=== PATIENT | female | born 1940 | race Caucasian/White ===

== ENCOUNTER 2020-05-25 13:22 | Observation (INO) ==
[~2020-05-25 13:22] MED LIST: Total Joint Mixture (50 ml) INTRAART ONE
[2020-05-25] MEDS ORDERED: Clindamycin 900 MG/50 ML 900 MG/50 ML IV.SOLN IVPB ONE (13:50)
[2020-05-25] MEDS ORDERED: Ringers Solution, Lactated 1,000 ML IVC SCH (14:00)
[2020-05-25] MEDS ORDERED: Acetaminophen IV 1,000 MG/100 ML BAG IVPB ONE (16:07)
[2020-05-25] MEDS ORDERED: Famotidine 20 MG/2 ML VIAL IVP ONE (16:07)
[2020-05-25] MEDS ORDERED: Pregabalin 75 MG CAPSULE PO ONE (16:10)
[2020-05-25] MEDS ORDERED: *HR* OxyCODONE Immed Rel 5 MG TABLET PO PRN (16:55)
[2020-05-25] MEDS ORDERED: Ondansetron 4 MG/2 ML VIAL IVP ONE (16:55)
[2020-05-25] MEDS ORDERED: Ethanol\\Acetic Acid\\Na Ace\\Ben 1,000 ML IRRIG.SOLN IR ONE (17:10)
[2020-05-25] MEDS ORDERED: Vancomycin 1,000 MG VIAL ONE (17:10)
[2020-05-25] MEDS ORDERED: *HR* Midazolam HCl 2 MG/2 ML VIAL ONE (18:00)
[2020-05-25] MEDS ORDERED: Ropivacaine/PF 0.5% 30 ML VIAL ONE (18:00)
[2020-05-25] MEDS ORDERED: Lidocaine -MPF 2% 2 ML VIAL ONE (18:23)
[2020-05-25] MEDS ORDERED: *HR* Propofol 200 MG/20 ML VIAL IVP ONE (18:23)
[2020-05-25 20:18] LABS: Hematocrit 29.5 % (35.3-44.9)
[2020-05-25] MEDS ORDERED: MOM Conc 10 ML UD.LIQ PO PRN (20:58)
[2020-05-25] MEDS ORDERED: Nitroglycerin 0.4 MG TAB.SUBL SL PRN (20:58)
[2020-05-25] MEDS ORDERED: D5% in Water 1,000 ML IVC PRN (20:58)
[2020-05-25] MEDS ORDERED: *HR* Promethazine 25 MG/ML VIAL IVP PRN (20:58)
[2020-05-25] MEDS ORDERED: Naloxone 0.4 MG/ML INJ IVP PRN (20:58)
[2020-05-25] MEDS ORDERED: Sennosides 8.6 MG TABLET PO PRN (20:58)
[2020-05-25] MEDS ORDERED: *HR* Dextrose 50 % in Water (Vial) 50 ML VIAL IVP PRN (20:58)
[2020-05-25] MEDS ORDERED: HYDROcodone BIT/Homatropine 5 MG TABLET PO PRN (20:58)
[2020-05-25] MEDS ORDERED: Ondansetron 4 MG/2 ML VIAL IVP PRN (20:58)
[2020-05-25] MEDS ORDERED: Dextrose Gel 15 GM/37.5 ML TUBE PO PRN ×2 (20:58)
[2020-05-25] MEDS: Ascorbic Acid 500 MG TABLET PO SCH (21:38)
[2020-05-25] MEDS: Insulin LISPRO 300 UNITS/3 ML VIAL SQ SCH (21:39)
[2020-05-25] MEDS: carvediloL 25 MG TABLET PO SCH (21:39)
[2020-05-26] MEDS: Clindamycin 900 MG/50 ML 900 MG/50 ML IV.SOLN IVPB SCH ×2 (00:22→07:46)
[2020-05-26] MEDS: *HR* OxyCODONE Immed Rel 5 MG TABLET PO PRN ×3 (01:32→21:08)
[2020-05-26] MEDS: Ringers Solution, Lactated 1,000 ML IVC SCH ×2 (02:21→12:58)
[2020-05-26] MEDS: *HR* Metformin 500 MG TABLET PO SCH ×2 (07:46→18:34)
[2020-05-26] MEDS: Cyanocobalamin (B-12) 1,000 MCG TABLET PO SCH (07:47)
[2020-05-26] MEDS: hydroCHLOROthiazide 25 MG TABLET PO SCH (07:47)
[2020-05-26] MEDS: Multivit/Ca/Min/Fe/FA 1 TAB TABLET PO SCH (07:47)
[2020-05-26] MEDS: Ascorbic Acid 500 MG TABLET PO SCH ×2 (07:47→18:34)
[2020-05-26] MEDS: *HR* Glimepiride 2 MG TABLET PO SCH (07:47)
[2020-05-26] MEDS: carvediloL 25 MG TABLET PO SCH ×2 (07:47→18:33)
[2020-05-26] MEDS: Insulin LISPRO 300 UNITS/3 ML VIAL SQ SCH ×4 (08:06→21:04)
[2020-05-26 12:06] LABS: Basophils % 0.2 %; Eosinophils % 0.1 %; Hematocrit 28.3 % (35.3-44.9); Hemoglobin 9.6 g/dL (11.5-15.4); Immature Granulocytes % 0.7 % (0-4); Lymphocytes # 1.1 K/mcL (0.6-4.6); Lymphocytes % 11.8 %; Mean Corpuscular HGB Conc 33.9 g/dL (31.6-35.5); Mean Corpuscular Hemoglobin 29.8 pg (28.0-33.3); Mean Corpuscular Volume 87.9 fL (83.0-100.0); Mean Platelet Volume 11.2 fL (9.4-12.4); Monocytes # 0.9 K/mcL (0.0-1.3); Neutrophils # 7.1 K/mcL (1.6-8.9); Platelet Count 153 K/mcL (140-400); Red Blood Count 3.22 M/mcL (3.82-4.97); Red Cell Distribution Width 12.1 % (11.5-14.5); Segmented Neutrophils % 77.2 %; White Blood Count 9.1 K/mcL (4.3-11.1)
[2020-05-26 12:25] LABS: BUN/Creatinine Ratio 23 (6-26); Blood Urea Nitrogen 24 mg/dL (8-23); Calcium 8.8 mg/dL (8.6-10.3); Carbon Dioxide 19 mEq/L (23-29); Chloride 103 mEq/L (98-107); Glucose 250 mg/dL (70-105); Osmolality,Calculated 286 (280-300); Potassium 4.3 mEq/L (3.5-5.1); Sodium 132 mEq/L (136-145); eGFR For African Americans > 60 (> 60); eGFR For Non-African Americans 51 (> 60)
[2020-05-26] MEDS: Aspirin Enteric Coated 81 MG Tablet PO SCH (18:34)
[2020-05-27] MEDS: *HR* OxyCODONE Immed Rel 5 MG TABLET PO PRN (04:31)
[2020-05-27] MEDS: Cyanocobalamin (B-12) 1,000 MCG TABLET PO SCH (07:38)
[2020-05-27] MEDS: Multivit/Ca/Min/Fe/FA 1 TAB TABLET PO SCH (07:38)
[2020-05-27] MEDS: carvediloL 25 MG TABLET PO SCH (07:38)
[2020-05-27] MEDS: Ringers Solution, Lactated 1,000 ML IVC SCH ×2 (07:39→12:33)
[2020-05-27] MEDS: *HR* Metformin 500 MG TABLET PO SCH (07:39)
[2020-05-27] MEDS: Ascorbic Acid 500 MG TABLET PO SCH (07:39)
[2020-05-27] MEDS: Aspirin Enteric Coated 81 MG Tablet PO SCH (07:39)
[2020-05-27] MEDS: hydroCHLOROthiazide 25 MG TABLET PO SCH (07:39)
[2020-05-27] MEDS: Insulin LISPRO 300 UNITS/3 ML VIAL SQ SCH ×2 (07:39→12:25)
[2020-05-27] MEDS: *HR* Glimepiride 2 MG TABLET PO SCH (07:39)
[2020-05-27 09:18] LABS: Basophils % 0.4 %; Eosinophils # 0.1 K/mcL (0.0-0.6); Hematocrit 30.3 % (35.3-44.9); Hemoglobin 10.1 g/dL (11.5-15.4); Immature Granulocytes % 0.4 % (0-4); Lymphocytes % 37.7 %; Mean Corpuscular HGB Conc 33.3 g/dL (31.6-35.5); Mean Corpuscular Hemoglobin 30.1 pg (28.0-33.3); Mean Corpuscular Volume 90.4 fL (83.0-100.0); Mean Platelet Volume 11.6 fL (9.4-12.4); Monocytes # 0.9 K/mcL (0.0-1.3); Monocytes % 8.3 %; Neutrophils # 5.5 K/mcL (1.6-8.9); Platelet Count 189 K/mcL (140-400); Red Blood Count 3.35 M/mcL (3.82-4.97); Red Cell Distribution Width 12.8 % (11.5-14.5); Segmented Neutrophils % 52.2 %; White Blood Count 10.6 K/mcL (4.3-11.1)
[2020-05-27 09:28] LABS: Potassium 3.9 mEq/L (3.5-5.1)
[2020-05-28 07:22] VITALS: BP 156/64
== END 2020-05-27 14:50 | disposition home health service (06) ==
LOC: 3NENU 13:22 → SAMDAY 13:22 → 3NENU 20:34
PROVIDERS: ADMIT Orthopaedic Surgery; ATTEND Orthopaedic Surgery